=== PATIENT | female | born 1950 | race Caucasian/White ===

== ENCOUNTER → 2017-12-29 | Outpatient (CLI) | payer MEDICARE ==
[~2017-12-29] MED LIST: ASCO1TAB4 PO; ASPI-515 PO; BIOT25005 PO; CHOL10003 PO; CYAN100028 PO; ESTR42.53 VG; JOINT FORMULA PO; KRILL OIL PO; LISI2.5T PO; OMEP-110 PO; PRAV10TA2 PO; UBIQ100C3 PO; [UNRECOGNIZED DRUG - OTHER] EACHEYE
== END ==
LOC: CARD 08:00
PROVIDERS: ATTEND Internal Medicine Cardiovascular Disease
DX: I34.0 Nonrheumatic mitral (valve) insufficiency (principal); I37.1 Nonrheumatic pulmonary valve insufficiency
CPT/HCPCS: 93306